=== PATIENT | female | born 1960 | race Caucasian/White ===

== ENCOUNTER → 2021-09-12 | Outpatient (CLI) | payer OTHER, SELFPAY | END | disposition home or self-care (01) | LOC: LABSPEC 13:24 | PROVIDERS: PCP Internal Medicine; Referring Provider Physician Assistant Surgical; Visit Provider Physician Assistant Surgical | DX: U07.1 COVID-19 (principal) | CPT/HCPCS: 87635; U0005; U0003 ==

== ENCOUNTER 2021-09-13 17:37 | Outpatient (CLI) | payer OTHER, SELFPAY ==
[2021-09-13 17:48] VITALS: BP 132/93; PULSE 86; RESP 16; TEMP 37.2; O2SAT 94; BMI 34.2
[2021-09-13] MEDS: 0.9% Saline Lock 10 ML Syringe IV (17:53)
[2021-09-13 18:29] VITALS: BP 129/81; PULSE 78; RESP 16; TEMP 37.6; O2SAT 96
[2021-09-13 19:20] VITALS: BP 132/87; PULSE 74; RESP 16; TEMP 36.9; O2SAT 99
== END 2021-09-13 19:28 | disposition home or self-care (01) ==
LOC: MS3OUT 17:37 → MS3 17:38
PROVIDERS: PCP Internal Medicine; Referring Provider Internal Medicine Pulmonary Disease; Visit Provider Internal Medicine Pulmonary Disease
DX: U07.1 COVID-19 (principal)
CPT/HCPCS: J7050; M0245; Q0245; A4216